=== PATIENT | male | born 1935 | race Caucasian/White ===

== ENCOUNTER 2016-09-28 13:59 | Day surgery (SDC) | payer OTHER, MEDICARE ==
[2016-09-28] MEDS ORDERED: MIDAZOLAM 2 MG/2 ML VIAL IVP ONE (14:01)
[2016-09-28] MEDS ORDERED: NS 500 ML IV ONE (14:01)
[2016-09-28] MEDS ORDERED: PROPOFOL 200 MG/20 ML VIAL IVP ONE (14:01)
[2016-09-28] MEDS ORDERED: fentaNYL 100 MCG/2 ML INJ IVP ONE (14:01)
[2016-09-28 14:45] LABS: INR 1.33 (0.83-1.16); PROTIME(PATIENT) 16.5 SEC (12.0-15.0)
[2016-09-28 14:46] LABS: APTT 38.3 SEC (23.0-38.0)
[2016-09-28 15:03] LABS: ANION GAP 12 mEq/L (8-16); CALCIUM 10.5 mg/dL (8.5-10.4); CARBON DIOXIDE 26 mEq/l (22-31); CHLORIDE 99 mEq/L (97-110); CREATININE 1.4 mg/dL (0.7-1.3); GLOMERULAR FILTRATION RATE 49; GLUCOSE 105 mg/dL (70-100); MAGNESIUM 1.6 mg/dL (1.6-2.3); POTASSIUM 4.9 mEq/L (3.5-5.2); SODIUM 137 mEq/L (134-144)
--- NOTE | 2016-09-28 15:37 | PDANEPAE ---
ANE History of Present Illness a. fib ANE Past Medical History - Cardiovascular History Hx Hypertension: Yes Hx Arrhythmias: Yes Hx Chest Pain: No Hx Coronary Artery / Peripheral Vascular Disease: Yes Hx CHF / Valvular Disease: No Hx Palpitations: Yes - Pulmonary History Hx COPD: No Hx Asthma/Reactive Airway Disease: No Hx Recent Upper Respiratory Infection: No Hx Oxygen in Use at Home: No Hx Sleep Apnea: No - Endocrine History Hx Diabetes: Yes Obesity: no ANE Review of Systems - Exercise capacity Exercise capacity: >=4 METS ANE Patient History - Allergies Allergies/Adverse Reactions: No Known Allergies Allergy (Unverified 08/18/15 05:40) - Home Medications Home medications: home medication list seen and reviewed Home Medications: Amlodipine Besylate 08/18/15 [Last Taken Unknown] Aspirin 81mg (OTC) 81 mg PO DAILY 08/18/15 [Last Taken 08/24/15 08:00] Atorvastatin Calcium 40 mg PO DAILY 08/18/15 [Last Taken 08/24/15 18:00] GLIPIZIDE 5 mg PO QID 08/18/15 [Last Taken 08/25/15 08:00] Lisinopril-Hctz 10-12.5 mg Tab 08/18/15 [Last Taken Unknown] Metformin HCl 500 mg PO BID 08/18/15 [Last Taken 08/24/15 19:00] Pradaxa 150 mg PO BID 08/18/15 [Last Taken 08/25/15 08:00] Toprol Xl 50 mg (RX) 50 mg PO BID 08/18/15 [Last Taken 08/25/15 08:00] - Anes Hx Anes Hx: no prior problems - Smoking Hx Smoking Status: Never smoked - Family Anes Hx Family Anes Hx: none ANE Labs/Vital Signs - Labs Result Diagrams: 09/28/16 14:25 - Vital Signs Height: 167.64 cm Weight: 66.224 kg ANE Physical Exam - Airway Neck exam: FROM Mallampati Score: Class 1 Mouth exam: normal dental/mouth exam, dentures - Pulmonary Pulmonary: no respiratory distress - Cardiovascular Cardiovascular: irregularly irregular - ASA Status ASA Status: III ANE Anesthesia Plan Anesthesia Plan: GA with mask
--- NOTE | 2016-09-28 16:03 | POSTANESTH ---
Post Anesthetic Evaluation Cardiovascular Status: Normal, Stable Respiratory Status: Normal, Stable Level of Consciousness/Mental Status: Mildly Sleepy, Arousable Pain Control: Adequate, Prn Tx Ordered Nausea/Vomiting Control: Adequate, Prn Tx Ordered Complications Possibly Related to Anesthesia: None Noted
--- NOTE | 2016-09-28 16:04 | CPEKG ---
Heart Rate: 57 RR Interval: 1053 P-R Interval: 188 QRSD Interval: 84 QT Interval: 440 QTC Interval: 429 P [place]: 53 QRS [place]: 46 T Wave [place]: 10 EKG Severity - NORMAL ECG - EKG Impression: SINUS RHYTHM Electronically Signed By: Pepito Pena 29-Sep-2016 15:31:56
== END 2016-09-28 17:03 | disposition home or self-care (01) ==
LOC: FCATH 13:59
PROVIDERS: ATTEND Internal Medicine
PROC: 5A2204Z Restoration of Cardiac Rhythm, Single (ICD-10-PCS; principal; 2016-09-28)
DX: I48.0 Paroxysmal atrial fibrillation (principal); Z79.01 Long term (current) use of anticoagulants; E11.9 Type 2 diabetes mellitus without complications; E78.5 Hyperlipidemia, unspecified; I10 Essential (primary) hypertension
CPT/HCPCS: J2704

== ENCOUNTER → 2016-10-08 | Outpatient (CLI) | payer OTHER, MEDICARE | LOC: BHFA 10:00 | PROVIDERS: ATTEND Internal Medicine Cardiovascular Disease | DX: I48.91 Unspecified atrial fibrillation (principal) ==

== ENCOUNTER 2016-10-13 08:41 | Inpatient (IN) | payer OTHER, MEDICARE ==
[2016-10-13] MEDS ORDERED: ACETAMINOPHEN 325 MG TAB PO PRN (12:07)
[2016-10-13 12:30] LABS: % IMMATURE GRANULYOCYTES 0.3 % (0.0-1.1); ABSOLUTE IMMATURE GRANULOCYTES 0.02 10^3/uL (0.00-0.10); ADD DIFF? NO; ADD MORPH? NO; ADD SCAN? NO; ATYPICAL LYMPHOCYTE FLAG 0 (0-99); FRAGMENT RBC FLAG 0 (0-99); HEMATOCRIT 47.2 % (40.0-51.0); LEFT SHIFT FLG 0 (0-99); LIPEMIA HEMOLYSIS FLAG 90 (0-99); MEAN CELL HEMOGLOBIN 30.5 pg (27.9-34.1); MEAN CELL HEMOGLOBIN CONCENTR. 33.9 g/dL (32.4-36.7); MEAN CELL VOLUME 89.9 fL (81.5-99.8); MEAN PLATELET VOLUME 10.6 fL (8.7-11.7); PLATELET CLUMPS FLAG 0 (0-99); PLATELET COUNT 269 10^3/uL (150-400); RED BLOOD CELL COUNT 5.25 10^6/uL (4.40-6.38); RED CELL DISTRIBUTION WIDTH 13.8 % (11.5-15.2)
[2016-10-13 12:34] LABS: INR 1.37 (0.83-1.16); PROTIME(PATIENT) 16.9 SEC (12.0-15.0)
[2016-10-13 12:35] LABS: APTT 34.6 SEC (23.0-38.0)
[2016-10-13 13:09] LABS: ANION GAP 10 mEq/L (8-16); CALCIUM 10.2 mg/dL (8.5-10.4); CARBON DIOXIDE 24 mEq/l (22-31); CHLORIDE 102 mEq/L (97-110); CREATININE 1.2 mg/dL (0.7-1.3); GLOMERULAR FILTRATION RATE 58; GLUCOSE 99 mg/dL (70-100); MAGNESIUM 1.4 mg/dL (1.6-2.3); POTASSIUM 4.4 mEq/L (3.5-5.2); SODIUM 136 mEq/L (134-144)
--- NOTE | 2016-10-13 14:13 | CPEKG ---
Heart Rate: 101 RR Interval: 594 QRSD Interval: 86 QT Interval: 336 QTC Interval: 436 QRS [place]: 57 T Wave [place]: -25 EKG Severity - ABNORMAL ECG - EKG Impression: ATRIAL FIBRILLATION, V-RATE 78-119 EKG Impression: RUN OF VENTRICULAR PREMATURE COMPLEXES EKG Impression: BORDERLINE T ABNORMALITIES, DIFFUSE LEADS EKG Impression: COMPARED WITH 28 SEP 2016, AF NOW PRESENT Electronically Signed By: Deisy Rivera 13-Oct-2016 19:39:44
--- NOTE | 2016-10-13 14:24 | PDCARPN ---
Cardiology Progress Note Chief Complaint: PAF Assessment/Plan: Assessment/Plan: Carlin is a 81 y/o M with a history of HTN, HLP, DM, and PAF s/p multiple CV. He presents today for Sotalol loading. A echo today showed preserved LV function and his QTc is wnl. He will begin Sotalol 120mg BID and continue to be monitored on tele. He will continue his current medical regimen for HLP and DM. Metoprolol will be d/c and therefore his HTN will need to be monitored closely. 10/13/16 14:21 Subjective: c/o of palpitations Objective: Vital Signs (8 Hrs) Temp Pulse Resp BP Pulse Ox 10/13/16 11:43 109 H 18 120/75 93 10/13/16 09:15 36.4 C 97 16 102/74 96 Intake/Output (24 Hrs) 10/12/16 10/13/16 10/14/16 05:59 05:59 05:59 Other: Weight 66.224 kg Result Diagrams: 10/13/16 11:20 10/13/16 11:20 EKG: a.fib rate controlled. Telemetry: a.fib at 110bpm - Physical Exam Constitutional: WDWN Cardiovascular: irregularly irregular Respiratory: clear to auscultate bilat, no crackles, no wheezes Skin: no edema ICD10 Worksheet Patient Problems: Problems Problem Status Onset Atrial fibrillation Acute - ICD10 Problem Qualifiers (1) Atrial fibrillation
[2016-10-13] MEDS ORDERED: MAGNESIUM SULF 2 GM/WATER 50 ML IV ONE (15:30)
[2016-10-13] MEDS: SOTALOL HCL 80 MG TAB PO SCH (15:51)
--- NOTE | 2016-10-13 16:44 | ECHO ---
[id number] + + [address] : : [place] [address] : : [phone] + + Adult Echocardiographic Report + ---+ :Name: TAB RIBERA LStudy Date: 10/13/2016 01:41 PM : : Hospital Admission Number: [id number] : :: 1935 Gender: Male Height: 66 in : :Age: 81 yrs Race: WH Weight: 146 l b : :Reason For Study: PAF/assess EF : : BSA: 1.7 mete rs2: + ---+ MMode/2D Measurements & Calculations IVSd: 0.92 cm LVIDd: 3.8 cm FS: 36.4 % Ao root diam: LVPWd: 0.89 cm LVIDs: 2.4 cm EDV(Teich): 4.1 cm 63.8 ml LA dimension: ESV(Teich): 3.4 cm 21.2 ml EF(Teich): 66.8 % LVLd ap4: 7.0 cm SV(MOD-sp4): EDV(MOD-sp4): 23.0 ml 36.0 ml LVLs ap4: 6.5 cm ESV(MOD-sp4): 13.0 ml EF(MOD-sp4): 63.9 % Normal Measurement Values: + + :LVIDd (3.5-5.7cm) IVSd (0.6-1.1cm) LVPWd (0.6-1.1cm) Aortic Root (2.0-3.7cm)Left Atrium (1.5-4.0cm): :LV Vol(d) (76-115ml) LV Vol(s) (29-48ml) Ejec Fraction (50-65%)PV Robinson (0.6- 1.2m/s) TV Robinson (0.4-1.0m/s) : :MV E Robinson (0.8-1.0m/s)MV A [place] (0.3-1.0m/s)LVOT Robinson (0.7-1.2m/s) Asc Ao Robinson ( 0.9-1.8m/s) : + + Doppler Measurements & Calculations MV E max robinson: 89.3 cm/sec Ao V2 max: 76.0 cm/sec TR max robinson: 237.5 cm/sec Ao max P.3 mmHg TR max P.6 mmHg RAP systole: 5.0 mmHg RVSP(TR): 27.6 mmHg Left Ventricle The left ventricle is normal in size. There is normal left ventricular wall thickness. Left ventricular systolic function is normal. Ejection Fraction = 60-65%. No regional wall motion abnormalities noted. Right Ventricle The right ventricle is normal in size and function. Atria The left atrial size is normal. Right atrial size is normal. The interatrial septum is intact with no evidence for an atrial septal defect. Mitral Valve The mitral valve is normal in structure and function. There is no evidence of mitral valve prolapse. There is no mitral valve stenosis. There is mild mitral regurgitation. Tricuspid Valve Normal tricuspid valve. There is mild tricuspid regurgitation. Right ventricular systolic pressure is normal. Aortic Valve The aortic valve is trileaflet. The aortic valve opens well. There is no aortic stenosis. Trace aortic regurgitation. Pulmonic Valve The pulmonic valve is normal in structure and function. Trace pulmonic valvular regurgitation. Great Vessels Borderline aortic root dilatation. Pericardium/Pleural Trivial anterior pericardial effusion. Conclusion A complete two-dimensional transthoracic echocardiogram was performed (2D, M-mode, Doppler and color flow Doppler). Left ventricular systolic function is normal. Ejection Fraction = 60-65%. There is mild mitral regurgitation. There is mild tricuspid regurgitation. Right ventricular systolic pressure is normal. Trace aortic regurgitation. Trace pulmonic valvular regurgitation. Borderline aortic root dilatation. Trivial anterior pericardial effusion Final Reading Physician: Jonathan Ricks signed on 10/13/2016 04:43 PM Ordering Physician: Reena Mc Performed By: Dana Prabhakar, ALEKSANDRACS
[2016-10-13] MEDS: metFORMIN HCL 500 MG TAB PO SCH (18:52)
--- NOTE | 2016-10-13 19:05 | CPEKG ---
Heart Rate: 91 RR Interval: 659 QRSD Interval: 88 QT Interval: 384 QTC Interval: 473 QRS [place]: 66 T Wave [place]: -34 EKG Severity - ABNORMAL ECG - EKG Impression: ATRIAL FIBRILLATION, V-RATE 69-104 EKG Impression: BORDERLINE T ABNORMALITIES, DIFFUSE LEADS Electronically Signed By: Deisy Rivera 13-Oct-2016 19:39:09
[2016-10-13] MEDS: glipiZIDE 5 MG TAB PO SCH (21:22)
[2016-10-13] MEDS: ATORVASTATIN CALCIUM 40 MG TAB PO SCH (21:22)
[2016-10-13] MEDS: APIXABAN 5 MG TAB PO SCH (21:22)
[2016-10-13] MEDS: LISINOPRIL 10 MG TAB PO SCH (21:26)
[2016-10-14] MEDS: SOTALOL HCL 80 MG TAB PO SCH ×3 (01:02→20:05)
--- NOTE | 2016-10-14 03:47 | CPEKG ---
Heart Rate: 75 RR Interval: 800 QRSD Interval: 86 QT Interval: 408 QTC Interval: 456 QRS [place]: 69 T Wave [place]: -53 EKG Severity - ABNORMAL ECG - EKG Impression: ATRIAL FIBRILLATION, V-RATE 66-79 EKG Impression: MULTIFORM VENTRICULAR PREMATURE COMPLEXES EKG Impression: NONSPECIFIC T ABNORMALITIES, DIFFUSE LEADS Electronically Signed By: Deisy Rivera 14-Oct-2016 14:13:13
[2016-10-14 04:54] LABS: INR 1.57 (0.83-1.16); PROTIME(PATIENT) 18.8 SEC (12.0-15.0)
[2016-10-14 04:56] LABS: ANION GAP 7 mEq/L (8-16); CALCIUM 8.7 mg/dL (8.5-10.4); CARBON DIOXIDE 25 mEq/l (22-31); CHLORIDE 105 mEq/L (97-110); CREATININE 1.2 mg/dL (0.7-1.3); GLOMERULAR FILTRATION RATE 58; GLUCOSE 90 mg/dL (70-100); MAGNESIUM 1.8 mg/dL (1.6-2.3); POTASSIUM 4.1 mEq/L (3.5-5.2); SODIUM 137 mEq/L (134-144)
[2016-10-14] MEDS: ASPIRIN 81 MG CHEWABLE TAB PO SCH (08:33)
[2016-10-14] MEDS: metFORMIN HCL 500 MG TAB PO SCH ×2 (08:33→17:58)
[2016-10-14] MEDS: glipiZIDE 5 MG TAB PO SCH ×3 (08:33→18:02)
[2016-10-14] MEDS: APIXABAN 5 MG TAB PO SCH ×2 (08:33→21:09)
[2016-10-14] MEDS: LISINOPRIL 10 MG TAB PO SCH ×2 (08:35→21:10)
--- NOTE | 2016-10-14 09:38 | PDCARPN ---
Cardiology Progress Note Chief Complaint: Palpitations/ atrail fibrillation Assessment/Plan: Assessment/Plan: Carlin is a 81 y/o M with a history of HTN, HLP, DM, and PAF s/p multiple CV. He presents today for Sotalol loading. A echo today showed preserved LV function and his QTc is wnl. He will begin Sotalol 120mg BID and continue to be monitored on tele. He will continue his current medical regimen for HLP and DM. Metoprolol will be d/c and therefore his HTN will need to be monitored closely. Pt is tolerating Sotalol well. He has remained in atrial fibrillation rate controlled. Plan for CV tomorrow morning at 8AM if he remains in a.fib. He has been hypotensive and therefore he has not had Lisinopril. 10/14/16 09:36 Subjective: c/o palpitations. He denies any cp, sob, or dizziness. Objective: Vital Signs (8 Hrs) Temp Pulse Resp BP Pulse Ox 10/14/16 04:00 36.6 C 101 H 16 102/66 92 Intake/Output (24 Hrs) 10/13/16 10/14/16 10/15/16 05:59 05:59 05:59 Intake Total 375 Balance 375 Intake: Oral (ml) 300 IV Intake (ml) 20 IV Infused (ml) 55 Magnesium Sulf 2 gm/Water 55 50 ml @ 50 mls/hr IV ONCE ONE Rx#:[id number] Other: Weight 66.224 kg Number of Voids Toilet 3 Result Diagrams: 10/13/16 11:20 10/14/16 04:24 Telemetry: a.fib rate controlled. - Physical Exam Constitutional: WDWN Cardiovascular: no murmurs, no rubs, irregularly irregular Respiratory: clear to auscultate bilat Skin: no edema ICD10 Worksheet Patient Problems: Problems Problem Status Onset Atrial fibrillation Acute - ICD10 Problem Qualifiers (1) Atrial fibrillation
--- NOTE | 2016-10-14 13:04 | CPEKG ---
Heart Rate: 85 RR Interval: 706 QRSD Interval: 82 QT Interval: 392 QTC Interval: 467 QRS [place]: 61 T Wave [place]: 25 EKG Severity - ABNORMAL ECG - EKG Impression: ATRIAL FIBRILLATION EKG Impression: NONSPECIFIC T ABNORMALITIES, ANTERIOR LEADS EKG Impression: COMPARED WITH 14 OCT 2016 AT 3:45 AM, VENTRICULAR ECTOPY RESOLVED Electronically Signed By: Deisy Rivera 14-Oct-2016 14:13:27
[2016-10-14] MEDS: ATORVASTATIN CALCIUM 40 MG TAB PO SCH (21:09)
[2016-10-15 04:48] VITALS: RESP 16
[2016-10-15 05:24] LABS: INR 1.52 (0.83-1.16); PROTIME(PATIENT) 18.3 SEC (12.0-15.0)
[2016-10-15 05:25] LABS: APTT 34.5 SEC (23.0-38.0)
[2016-10-15 05:30] LABS: ANION GAP 10 mEq/L (8-16); CALCIUM 8.4 mg/dL (8.5-10.4); CARBON DIOXIDE 23 mEq/l (22-31); CHLORIDE 106 mEq/L (97-110); CREATININE 1.2 mg/dL (0.7-1.3); GLOMERULAR FILTRATION RATE 58; GLUCOSE 106 mg/dL (70-100); POTASSIUM 4.5 mEq/L (3.5-5.2); SODIUM 139 mEq/L (134-144)
[2016-10-15] MEDS ORDERED: ATROPINE SULFATE 1 MG/10 ML SYR IVP ONE (06:00)
[2016-10-15] MEDS: APIXABAN 5 MG TAB PO SCH (06:59)
[2016-10-15] MEDS ORDERED: SOTALOL HCL 80 MG TAB PO ONE (07:00)
[2016-10-15] MEDS ORDERED: PROPOFOL 200 MG/20 ML VIAL ONE (07:45)
--- NOTE | 2016-10-15 07:57 | PDANEPAE ---
ANE History of Present Illness synchronized cardioversion ANE Past Medical History - Cardiovascular History Hx Hypertension: Yes Hx Arrhythmias: Yes Hx Chest Pain: No Hx Coronary Artery / Peripheral Vascular Disease: Yes Hx CHF / Valvular Disease: No Hx Palpitations: Yes - Pulmonary History Hx COPD: No Hx Asthma/Reactive Airway Disease: No Hx Recent Upper Respiratory Infection: No Hx Oxygen in Use at Home: No Hx Sleep Apnea: No - Endocrine History Hx Diabetes: Yes Hypothyroid: No Hyperthyroid: No - Neurological & Psychiatric Hx Hx Neurological and Psychiatric Disorders: Yes Neurological / Psychiatric History Comment: history of TIA's - GI History GERD: no - Chronic Pain History Chronic Pain: No - Surgical History Prior Surgeries: two hernia repairs ANE Review of Systems Review of Systems: - Exercise capacity METS (RN): 4 METS (when in NSR) ANE Patient History - Allergies Allergies/Adverse Reactions: No Known Allergies Allergy (Unverified 08/18/15 05:40) - Home Medications Home Medications: Aspirin [Aspirin 81mg (*)] 81 mg PO DAILY 08/18/15 [Last Taken 10/13/16] Atorvastatin Calcium [Lipitor 40 mg (*)] 40 mg PO HS 08/18/15 [Last Taken ] Lisinopril [Zestril 10 mg (*)] 10 mg PO BID 08/18/15 [Last Taken 10/12/16 21:00] Metoprolol Succinate Xr [Toprol Xl 50 mg (*)] 50 mg PO BID 08/18/15 [Last Taken 10/12/16 12:00] glipiZIDE [Glipizide] 2.5 mg PO TID@,,08/18/15 [Last Taken 10/13/16] metFORMIN HCL [Glucophage 500 mg (*)] 250 mg PO BIDMEAL 08/18/15 [Last Taken 07/24] Apixaban [Eliquis] 5 mg PO BID 10/13/16 [Last Taken 10/13/16] Calcium Carbonate [Tums 500MG (*)] 500 mg PO QID PRN 10/13/16 [Last Taken Unknown] Herbals/Supplements -Info Only 1 ea PO DAILY 10/13/16 [Last Taken Unknown] Lisinopril [Zestril 10 mg (*)] 10 mg PO DAILY PRN 10/13/16 [Last Taken Unknown] Multivitamins [Multivitamin (*)] 1 each PO DAILY 10/13/16 [Last Taken Unknown] glipiZIDE XL [Glucotrol Xl] 5 mg PO BID 10/13/16 [Last Taken 10/13/16] - Smoking Hx Smoking Status: Never smoked ANE Labs/Vital Signs - Labs Result Diagrams: 10/13/16 11:20 10/15/16 04:03 - Vital Signs Blood Pressure: 107/78 Heart Rate: 99 Respiratory Rate: 16 O2 Sat (%): 92 Height: 167.64 cm Weight: 66.224 kg ANE Physical Exam - Airway Mouth exam: dentures - Pulmonary Pulmonary: clear to auscultation - Cardiovascular Cardiovascular: irregularly irregular - ASA Status ASA Status: III ANE Anesthesia Plan Anesthesia Plan: GA with mask
--- NOTE | 2016-10-15 08:10 | PDHPUP ---
History & Physical Update H&P update statement: This history and physical update is based on an assessment of the patient which was completed after admission or registration (within 24 hours), but prior to the surgery/procedure. H&P update: H&P reviewed & patient examined, no change in patient's condition since H&P completed
--- NOTE | 2016-10-15 08:27 | POSTANESTH ---
Post Anesthetic Evaluation Cardiovascular Status: Similar to Pre-Op Cond Respiratory Status: Normal, Stable Level of Consciousness/Mental Status: Can Participate in Eval Pain Control: Adequate, Prn Tx Ordered Nausea/Vomiting Control: Adequate, Prn Tx Ordered Complications Possibly Related to Anesthesia: None Noted
--- NOTE | 2016-10-15 08:29 | CPEKG ---
Heart Rate: 56 RR Interval: 1071 P-R Interval: 172 QRSD Interval: 84 QT Interval: 520 QTC Interval: 502 P [place]: 63 QRS [place]: 56 T Wave [place]: 23 EKG Severity - ABNORMAL ECG - EKG Impression: SINUS RHYTHM EKG Impression: PROBABLE LEFT ATRIAL ABNORMALITY EKG Impression: NONSPECIFIC T ABNORMALITIES, ANTERIOR LEADS EKG Impression: PROLONGED QT INTERVAL EKG Impression: COMPARED WITH 14 OCT 2016 AT 22:20, NSR NOW PRESENT. ANTERIOR T ABNL NOW SEEN. EKG Impression: QT PROLONGED Electronically Signed By: Deisy Rivera 15-Oct-2016 21:29:38
[2016-10-15] MEDS: LISINOPRIL 10 MG TAB PO SCH (11:01)
[2016-10-15 11:10] VITALS: BP 116/59; PULSE 62; TEMP 97.8; O2SAT 94
[2016-10-15] MEDS: glipiZIDE 5 MG TAB PO SCH (11:15)
[2016-10-15] MEDS: ASPIRIN 81 MG CHEWABLE TAB PO SCH (11:15)
[2016-10-15] MEDS: metFORMIN HCL 500 MG TAB PO SCH (11:15)
--- NOTE | 2016-10-15 11:38 | GDS ---
[f rep st] DISCHARGE SUMMARY DISCHARGE DIAGNOSES: 1. Paroxysmal atrial fibrillation, status post sotalol load, as well as cardioversion. 2. History of hypertension. HOSPITAL COURSE: For a detailed H and P, please see prior dictation. Briefly, the patient is an 81- year-old male with a history of paroxysmal atrial fibrillation since 2006. He has had multiple cardi oversions and his events have become more frequent, and therefore he had a consultation with Dr. Alesha Betancur. They discussed antiarrhythmic therapy versus PVI ablation. Ultimately, he decided to proc eed with sotalol initiation. He was started on 120 mg b.i.d., and his QTc has remained within normal limits. He was in atrial fibrillation on admission and remained in the rhythm despite beginning sot alol. On the day of discharge, he did have a cardioversion with Dr. Betancur, which was successful. He is currently in normal sinus rhythm at a rate of 87 beats per minute. He has nonspecific inferior an d anterior T-wave changes. He has been hypotensive to normotensive throughout his hospitalization. His blood pressure is running anywhere between 90/57 to 120/75. His lisinopril and metoprolol have b een held since he was admitted to the hospital. DISCHARGE MEDICATIONS: Sotalol 120 mg b.i.d., metformin 250 mg b.i.d., glipizide 2.5 mg t.i.d., Lipi tor 40 mg daily, aspirin 81 mg daily, multivitamin daily, herbal supplement daily, Eliquis 5 mg b.i.d ., glipizide XL 5 mg b.i.d. He will discontinue metoprolol and lisinopril. PLAN: The patient is currently stable and ready for discharge home. He will keep a blood pressure l og and call our office in 2 weeks to discuss his results. For now, he will remain off metoprolol and lisinopril. If his pressures began to rise, lisinopril 10 mg daily could be resumed. He will follo w up with Dr. Betancur on November 12 at 11 o'clock. /[id number]/MODL
--- NOTE | 2016-10-15 21:30 | CPEKG ---
Heart Rate: 87 RR Interval: 690 QRSD Interval: 76 QT Interval: 360 QTC Interval: 433 QRS [place]: 65 T Wave [place]: 213 EKG Severity - ABNORMAL ECG - EKG Impression: ATRIAL FIBRILLATION EKG Impression: BORDERLINE T ABNORMALITIES, DIFFUSE LEADS Electronically Signed By: Deisy Rivera 15-Oct-2016 21:29:52
--- NOTE | 2016-10-17 17:05 | ASMTCMCOM ---
CM Note CM Note Notes: CM DISCHARGE NOTE: Spoke with patient and his -- they feel comfortable going home today. Daughter is an OT. No d/c needs identified by physician. Date Signed: 10/15/2016 10:45 AM Electronically Signed By:Kathy Guillaume
== END 2016-10-15 11:45 | disposition home or self-care (01) | DRG 310 ==
LOC: F2W 08:41 → OBSVTOIN 12:07
PROVIDERS: ADMIT Internal Medicine Cardiovascular Disease; ATTEND Internal Medicine Cardiovascular Disease
PROC: 5A2204Z Restoration of Cardiac Rhythm, Single (ICD-10-PCS; principal; 2016-10-15)
DX: I48.91 Unspecified atrial fibrillation (principal); I10 Essential (primary) hypertension; Z79.01 Long term (current) use of anticoagulants; E78.5 Hyperlipidemia, unspecified; E11.9 Type 2 diabetes mellitus without complications
CPT/HCPCS: J0461; J2704

== ENCOUNTER 2018-06-16 07:22 | Day surgery (SDC) | payer OTHER, MEDICARE ==
[2018-06-16] MEDS ORDERED: LIDOCAINE 1% 300 MG/30 ML SDV SC ONE (07:26)
[2018-06-16] MEDS ORDERED: MIDAZOLAM 2 MG/2 ML VIAL IVP ONE (08:24)
[2018-06-16] MEDS ORDERED: ATROPINE SULFATE 1 MG/10 ML SYR IVP ONE (08:24)
[2018-06-16] MEDS ORDERED: NS 500 ML IV ONE (08:24)
--- NOTE | 2018-06-16 08:31 | POSTANESTH ---
Post Anesthetic Evaluation Cardiovascular Status: Similar to Pre-Op Cond Respiratory Status: Similar to Pre-op Cond. Level of Consciousness/Mental Status: Can Participate in Eval, Moderately Sleepy Pain Control: Adequate, Prn Tx Ordered Nausea/Vomiting Control: Adequate, Prn Tx Ordered Complications Possibly Related to Anesthesia: None Noted
--- NOTE | 2018-06-16 08:31 | PDANEPAE ---
ANE History of Present Illness cardioversion ANE Past Medical History - Cardiovascular History Hx Hypertension: Yes Hx Arrhythmias: Yes Hx Chest Pain: No Hx Coronary Artery / Peripheral Vascular Disease: Yes Hx CHF / Valvular Disease: No Hx Palpitations: Yes - Pulmonary History Hx COPD: No Hx Asthma/Reactive Airway Disease: No Hx Recent Upper Respiratory Infection: No Hx Oxygen in Use at Home: No Hx Sleep Apnea: No - Endocrine History Hx Diabetes: Yes - Neurological & Psychiatric Hx Hx Neurological and Psychiatric Disorders: Yes Neurological / Psychiatric History Comment: history of TIA's - GI History GERD: mild - Chronic Pain History Chronic Pain: No - Surgical History Prior Surgeries: two hernia repairs ANE Review of Systems Review of systems is: negative Review of Systems: - Exercise capacity Exercise capacity: >=4 METS ANE Patient History - Allergies Allergies/Adverse Reactions: No Known Allergies Allergy (Unverified 08/18/15 05:40) - Home Medications Home medications: home medication list seen and reviewed Home Medications: Aspirin [Aspirin 81mg (*)] 162 mg PO DAILY 08/18/15 [Last Taken 06/15/18 08:00] Atorvastatin Calcium [Lipitor 40 mg (*)] 40 mg PO HS 08/18/15 [Last Taken 21:00] glipiZIDE [Glipizide] 2.5 mg PO TID@,,08/18/15 [Last Taken 06/15/18 18:00 ] metFORMIN HCL [Glucophage 500 mg (*)] 250 mg PO BIDMEAL 08/18/15 [Last Taken 10/26 18:00] Apixaban [Eliquis] 5 mg PO BID 10/13/16 [Last Taken 06/16/18 05:00] Calcium Carbonate [Tums 500MG (*)] 500 mg PO QID PRN 10/13/16 [Last Taken 08:00] Herbals/Supplements -Info Only 1 ea PO DAILY 10/13/16 [Last Taken 06/15/18 08:00 ] Multivitamins [Multivitamin (*)] 1 each PO DAILY 10/13/16 [Last Taken 06/15/18 08:00] glipiZIDE XL [Glucotrol Xl] 5 mg PO BID 10/13/16 [Last Taken 06/15/18 18:00] Lisinopril 10 mg PO TID 06/16/18 [Last Taken 06/16/18 05:00] - NPO status NPO Status: no food or drink >8 hours - Anes Hx Anes Hx: no prior problems - Smoking Hx Smoking Status: Never smoked - Family Anes Hx Family Anes Hx: none ANE Labs/Vital Signs - Labs Result Diagrams: 06/16/18 08:30 - Vital Signs Vital Signs: reviewed preoperatively; see RN documention for details Height: 168 cm Weight: 66.1 kg ANE Physical Exam - Airway Neck exam: FROM Mallampati Score: Class 1 Mouth exam: dentures - Pulmonary Pulmonary: no respiratory distress - Cardiovascular Cardiovascular: regular rate and rhythym - ASA Status ASA Status: III ANE Anesthesia Plan Total IV Anesthesia: Yes
[2018-06-16] MEDS ORDERED: PROPOFOL 200 MG/20 ML VIAL ONE (08:37)
[2018-06-16 08:46] LABS: INR 1.31 (0.83-1.16); PROTIME(PATIENT) 15.7 SEC (12.0-15.0)
--- NOTE | 2018-06-16 09:12 | PDHPUP ---
History & Physical Update H&P update statement: This history and physical update is based on an assessment of the patient which was completed after admission or registration (within 24 hours), but prior to the surgery/procedure. H&P update: H&P reviewed & patient examined, no change in patient's condition since H&P completed H&P changes: Telemetry today with noted atrial fibrillation (at 105 bpm). Patient states that he went into this arrhythmia at 0200 this morning. No miss to oral anticoagulant therapy. Given this noted arrhythmia, we opted to cardiovert the patient and place the LINQ monitor. We are still wanting to know frequency and duration of atrial arrhythmias, as well as if there are further neurologic events, were there arrhythmias in association with the transient deficits?
--- NOTE | 2018-06-16 09:21 | SUROPNOTE ---
[facility] Operative Report - Surgery PROCEDURES: (1) Anesthesia driven sedation (2) Cardioversion (3) LINQ placement INDICATION: (1) Frequent TIAs without clear relation to arrhythmias DETAILS: After consents for anesthesia, cardioversion, and LINQ placement were signed, a time out was performed. Vital signs were monitored real time and sedation was induced. After moderate sedation was achieved, a single, synchronized shock at 200J was performed, converting patient from atrial fibrillation at 105 bpm to normal sinus rhythm at 55 bpm. No complications with this procedure were appreciated While the patient had residual moderate sedation, the patient was prepped and draped in usual sterile fashion. Lidocaine (1%) was injected to the 1st through 3rd left intercostal spaces in preparation for Confirm implant. A small incision was made with a #12 blade to the 2nd/3rd intercostal space, and the provided blade for width and breath was then used for appropriate sizing. The delivery rail system with device pre loaded was then placed into the incision at a superficial angle of 45 degrees. The device was then easily injected subcutaneously without difficulty, and the rail system was removed. No bleeding from incision site was noted. Three dona were used to close the incision. Outpatient follow up with cardiology in one week. Outpatient interrogation schedule to be arranged. Patient recovered without incident I spoke with the post procedure Continue Eliquis as prescribed
--- NOTE | 2018-06-17 07:31 | CPEKG ---
Test Reason : OPEN Blood Pressure : / mmHG Vent. Rate : 115 BPM Atrial Rate : 142 BPM P-R Int : 136 ms QRS Dur : 088 ms QT Int : 363 ms P-R-T Axes : 000 044 -47 degrees QTc Int : 502 ms Atrial fibrillation Borderline T abnormalities, diffuse leads Borderline prolonged QT interval Confirmed by Quoc Mcneil ([id number]) on 06/17/2018 7:30:48 AM Referred By: You Ogden Confirmed By:Quoc Mcneil
--- NOTE | 2018-06-17 07:32 | CPEKG ---
Test Reason : OPEN Blood Pressure : / mmHG Vent. Rate : 055 BPM Atrial Rate : 055 BPM P-R Int : 170 ms QRS Dur : 089 ms QT Int : 498 ms P-R-T Axes : 053 040 012 degrees QTc Int : 477 ms Sinus rhythm Probable left atrial enlargement Borderline T abnormalities, anterior leads Borderline prolonged QT interval Confirmed by Quoc Mcneil ([id number]) on 06/17/2018 7:32:05 AM Referred By: You Ogden Confirmed By:Quoc Mcneil
== END 2018-06-16 10:50 | disposition home or self-care (01) ==
LOC: FCATH 07:22
PROVIDERS: ATTEND Internal Medicine Cardiovascular Disease
PROC: 0JH602Z Insertion of Monitoring Device into Chest Subcutaneous Tissue and Fascia, Open Approach (ICD-10-PCS; principal; 2018-06-16)
PROC: 5A2204Z Restoration of Cardiac Rhythm, Single (ICD-10-PCS; principal; 2018-06-16)
DX: I48.0 Paroxysmal atrial fibrillation (principal); Z86.73 Personal history of transient ischemic attack (TIA), and cerebral infarction without residual deficits; I10 Essential (primary) hypertension; E78.5 Hyperlipidemia, unspecified; E11.9 Type 2 diabetes mellitus without complications
CPT/HCPCS: C1764; J0461; J2704

== ENCOUNTER → 2018-07-31 | Outpatient (CLI) | payer OTHER, MEDICARE | LOC: BHLMT 09:15 ==